=== PATIENT | female | born 1960 | race Caucasian/White ===

== ENCOUNTER 2016-11-16 07:47 | Inpatient (IN) | payer OTHER ==
[~2016-11-16 07:47] MED LIST: ASPIRIN325 MG; DULCOLAX STOOL100 M1 PO; EXCEDRIN TABLET1 TAB; GLUCOSAMINE-CH1 EA29 PO; MELOXICAM15 M1 PO; MULTIVITAMINS1 EAC7 PO; PREMARIN0.625 MG/T PO; PRINIVIL10 M1 PO; ULTRAM50 M1 PO; VITAMIN D35000 UNI3 PO; XANAX0.5 M1 PO
[2016-11-17 06:30] LABS: HCT-HEMATOCRIT 32.7 % (34.0-49.0); HGB-HEMOGLOBIN 10.7 gm/dl (12.0-15.5); MCHC MEAN CORPUSCULAR HGB CONC 32.7 % (32.0-36.0); MCV (MEAN CELL VOLUME) 88.6 fl (82.0-96.0); MEAN PLATELET VOLUME 9.6 cmc (9.4-12.4); NEUTROPHIL-AUTOMATED 6.9 tho/cmm (1.6-8.0); PLATELET COUNT 309 tho/cmm (150-450); RED BLOOD COUNT 3.69 mil/cmm (4.00-5.20); RED CELL DISTRIBUTION WIDTH 13.5 % (12.4-16.4); WHITE BLOOD COUNT 9.5 tho/cmm (4.0-10.0)
[2016-11-17 08:54] LABS: BASO % 0.1 % (0-2); EOS % 0.2 % (0-7); IMMATURE GRANULOCYTES PERCENT 0.2 % (0-0.3); LYMPH % 14.2 % (20-45); LYMPH ABSOLUTE COUNT 1.4 tho/cmm (0.8-4.5); MONO % 12.8 % (0-12); MONOCYTE ABSOLUTE COUNT 1.2 tho/cmm (0.0-1.2); NEUTROPHILS % 72.5 % (40-80)
[2016-11-19] MEDS ORDERED: NORCO 5-325 TA1 EACH PO (10:24)
[2016-11-19] MEDS ORDERED: DULCOLAX10 MG PR (10:30)
== END 2016-11-19 11:35 | DRG 748 ==
LOC: SHSB 07:47 → ORW 09:33 → OBGF 15:25
PROVIDERS: ADMIT Specialist
PROC: 0USG0ZZ Reposition Vagina, Open Approach (ICD-10-PCS; principal; 2016-11-16)
PROC: 0DNE0ZZ Release Large Intestine, Open Approach (ICD-10-PCS; 2016-11-16)
PROC: 0TNB0ZZ Release Bladder, Open Approach (ICD-10-PCS; 2016-11-16)
PROC: 0JQC0ZZ Repair Pelvic Region Subcutaneous Tissue and Fascia, Open Approach (ICD-10-PCS; 2016-11-16)
PROC: 0TSD0ZZ Reposition Urethra, Open Approach (ICD-10-PCS; 2016-11-16)
DX: N81.10 Cystocele, unspecified (principal); N73.6 Female pelvic peritoneal adhesions (postinfective); N81.6 Rectocele; N94.10 Unspecified dyspareunia
CPT/HCPCS: J0295; J1170; J2270; J3010; J7121